=== PATIENT | male | born 1980 | race Caucasian/White ===

== ENCOUNTER 2018-10-20 23:01 | Emergency (ER) | payer OTHER ==
--- NOTE | 2018-10-20 23:35 | EDM.PDOC ---
ED HPI GENERAL MEDICAL PROBLEM - General Chief Complaint: Neck Problem Stated Complaint: NECK INJURY Time Seen by Provider: 10/20/18 23:29 - History of Present Illness INITIAL COMMENTS - FREE TEXT/NARRATIVE: 38-year-old presents emergency room with head and neck pain. Patient was sent in front of the head with a heavy piece of metal tubing the causes had rolled violently backwards. Immediately he developed a headache in the back of his head and developed neck pain. No other associated injury with this he was wearing his hard hat. Patient has a significant past medical history of MS however he is off therapy for this and has done well for about 5 years. Neck Pain Score (Numeric/FACES): 0 - Related Data Allergies Allergy/AdvReac Type Severity Reaction Status Date / Time No Known Allergies Allergy Verified 10/20/18 23:17 Past Medical History Cardiovascular History: Reports: Hypertension Neurological History: Reports: MS - Infectious Disease History Infectious Disease History: Reports: Chicken Pox, Influenza - Past Surgical History HEENT Surgical History: Reports: LASIK Musculoskeletal Surgical History: Reports: Other (See Below) Other Musculoskeletal Surgeries/Procedures:: c5 or c7 fracture Social & Family History - Family History Family Medical History: Noncontributory - Tobacco Use Smoking Status *Q: Never Smoker - Caffeine Use Caffeine Use: Reports: Energy Drinks - Recreational Drug Use Recreational Drug Use: No ED ROS GENERAL - Review of Systems Review Of Systems: See Below Constitutional: Reports: No Symptoms HEENT: Reports: No Symptoms Respiratory: Reports: No Symptoms Cardiovascular: Reports: No Symptoms Endocrine: Reports: No Symptoms GI/Abdominal: Reports: No Symptoms : Reports: No Symptoms Musculoskeletal: Reports: No Symptoms Skin: Reports: No Symptoms Neurological: Reports: No Symptoms Psychiatric: Reports: No Symptoms ED EXAM, UPPER BACK/NECK PAIN - Physical Exam Exam: See Below Exam Limited By: No Limitations General Appearance: Alert, No Apparent Distress, Other (C collar in place) Eye Exam: Bilateral Eye: EOMI, Normal Inspection, PERRL Ears Exam: Normal External Exam, Normal Canal, Hearing Grossly Normal, Normal TMs Nose Exam: Normal Inspection, Normal Mucousa, No Blood Throat/Mouth Exam: Normal Inspection, Normal Lips, Normal Gums, Normal Oropharynx Head Exam: Atraumatic, Normocephalic Neck Exam: Other (Collar in place) Cardiovascular/Respiratory: Regular Rate, Rhythm, No M/R/G, Normal Breath Sounds , No Respiratory Distress GI/Abdominal: Normal Bowel Sounds, Soft, Non-Tender, No Organomegaly, No Distention, No Abnormal Bruit, No Mass Back Exam: Normal Inspection. No: CVA Tenderness (L), CVA Tenderness (R), Paraspinal Tenderness, Vertebral Tenderness Extremities: No Pedal Edema, Normal Capillary Refill Neurologic: voice instructor II-XII nml As Tested, No Motor/Sensory Deficits, Alert, Normal Mood/Affect, Oriented x 3 Course - Vital Signs Last Recorded V/S: Last Vital Signs Temp 36.9 C 10/20/18 23:13 Pulse 79 10/20/18 23:13 Resp 20 10/20/18 23:13 BP 157/95 H 10/20/18 23:13 Pulse Ox 100 10/20/18 23:13 - Orders/Labs/Meds Orders: Active Orders 24 hr Category Date Time Status Cervical Spine wo Cont [CT] Stat Exams 10/20/18 23:37 Taken Head wo Cont [CT] Stat Exams 10/20/18 23:37 Taken - Re-Assessments/Exams Free Text/Narrative Re-Assessment/Exam: 10/21/18 00:30 CT evaluation of the head and neck are unremarkable for acute changes. Discussed pain management with the patient he declines any medications at this point. Departure - Departure Time of Disposition: 00:31 Disposition: Home, Self-Care 01 Clinical Impression: Cervical strain, acute, Head injury - Discharge Information Referrals: PCP,None [Primary Care Provider] - Forms: ED Department Discharge Additional Instructions: Return to the emergency room with any questions problems worsening symptoms. Ibuprofen as needed for pain. Follow-up in the Hospital clinic at the end of this week. [phone] - My Orders Last 24 Hours: My Active Orders 10/20/18 23:37 Cervical Spine wo Cont [CT] Stat Head wo Cont [CT] Stat - Assessment/Plan Last 24 Hours: My Active Orders 10/20/18 23:37 Cervical Spine wo Cont [CT] Stat Head wo Cont [CT] Stat
--- NOTE | 2018-10-21 10:00 | CT ---
Head CT Technique: Multiple axial sections through the brain were obtained. Intravenous contrast was not utilized. Comparison: No prior intracranial imaging is available. Findings: Ventricles along with basal cisterns and sulci over the convexities are within normal limits for the patient's age. No abnormal parenchymal densities are seen. No evidence of intracranial hemorrhage. No midline shift or mass effect is seen. Bone window settings were reviewed which show no acute calvarial abnormality. Visualized sinuses are clear. Impression: 1. Nothing acute is identified on noncontrast head CT exam. Diagnostic code #1 I agree with preliminary report from [facility], finalized on 10/21/18, 1:03 AM Central Time
--- NOTE | 2018-10-21 10:00 | CT ---
CT cervical spine Technique: Multiple axial sections were obtained from above C1 inferiorly to the mid T3 level. Reconstructed sagittal and coronal images were reviewed. Comparison: No prior cervical spine imaging. Findings: Calcifications are noted within the anterior annulus at C2-C3 as well as slight spurring off the superior and anterior endplate of C3 and C4. Vertebral body heights and disc spaces are maintained. No bony central or bony neural foraminal stenosis is seen. No fracture is identified. No abnormal subluxation is seen. Impression: 1. Minimal degenerative change. Nothing acute is identified on CT study of the cervical spine. Diagnostic code #2 I agree with preliminary report from [facility], finalized on 10/21/18, 1:06 AM Central Time
== END 2018-10-21 00:46 | disposition home or self-care (01) ==
LOC: JD.ED 23:01
DX: S09.90XA Unspecified injury of head, initial encounter (principal); S16.1XXA Strain of muscle, fascia and tendon at neck level, initial encounter; I10 Essential (primary) hypertension; W20.8XXA Other cause of strike by thrown, projected or falling object, initial encounter; Y99.0 Civilian activity done for income or pay
CPT/HCPCS: 70450; 70450-26; 72125; 72125-26; 99282; 99284-25